=== PATIENT | female | born 1990 | race Caucasian/White ===

== ENCOUNTER 2017-09-02 10:51 | Emergency (ER) | payer MEDICAID ==
[2017-09-02 11:14] VITALS: BP 144/93
[2017-09-02] MEDS: Lidocaine 1% 20 ML MDV ONE (11:30)
[2017-09-02] MEDS: Bacitracin/Neomycin/Polymyxin B Oint 0.9 GM U/D Packet ONE (11:30)
--- NOTE | 2017-09-02 12:59 | EDM.PDOC ---
ED HPI GENERAL MEDICAL PROBLEM - General Chief Complaint: Laceration Stated Complaint: LT RING FINGER Time Seen by Provider: 09/02/17 11:00 Source of Information: Reports: Patient History Limitations: Reports: No Limitations - History of Present Illness INITIAL COMMENTS - FREE TEXT/NARRATIVE: Patient presents with a laceration to her left ring finger. She states she caught her ring on the gate at home and sliced her finger open. Did apply pressure with a bandage. Has good range of motion with her finger. Mild discomfort. Unsure of tetanus status. 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: , Other (See Below) Other OB/BYN History: 2 VIABLE CHILDREN, CURRENTLY 23WEEKS Social & Family History - Tobacco Use Smoking Status *Q: Unknown Ever Smoked - Recreational Drug Use Recreational Drug Use: No ED ROS GENERAL - Review of Systems Review Of Systems: See Below Constitutional: Reports: No Symptoms HEENT: Reports: No Symptoms Respiratory: Reports: No Symptoms Cardiovascular: Reports: No Symptoms GI/Abdominal: Reports: No Symptoms Skin: Reports: Wound ED EXAM, SKIN/RASH Exam: See Below Exam Limited By: No Limitations General Appearance: Alert, WD/WN, No Apparent Distress Extremities: Normal Range of Motion, Normal Capillary Refill Neurological: Alert, Oriented Psychiatric: Normal Affect, Normal Mood Skin: Wound/Incision ED SKIN PROCEDURES - Laceration/Wound Repair Left Finger Lac/Wound length In cm: 1.5 Appearance: Superficial Distal NVT: Neuro & Vascular Intact Anesthetic Type: Local Local Anesthesia - Lidocaine (Xylocaine): 1% Plain Local Anesthetic Volume: 2cc Skin Prep: Other (saf-clens) Exploration/Debridement/Repair: Wound Explored Closed with: Sutures Suture Size: 4-0 Suture Type: Nylon, Interrupted, Simple # of Sutures: 3 Sterile Dressing Applied: Nurse Tetanus Status Addressed: Yes Complications: No Course - Vital Signs Last Recorded V/S: Last Vital Signs Temp 98.5 F 09/02/17 11:12 Pulse 106 H 09/02/17 11:12 Resp 20 09/02/17 11:12 BP 144/93 H 09/02/17 11:12 Pulse Ox 99 09/02/17 11:12 - Orders/Labs/Meds Meds: Medications Discontinued Medications Generic Name Dose Route Start Last Admin Trade Name Jorge PRN Reason Stop Dose Admin Lidocaine HCl Confirm 09/02/17 10:53 09/02/17 11:30 Xylocaine 1% Administered 09/02/17 10:54 20 ml Dose Administration 20 ml .ROUTE .STK-MED ONE Neomycin/Polymyxin/Bacitracin Confirm 09/02/17 11:06 09/02/17 11:30 Triple Antibiotic Oint Administered 09/02/17 11:07 1 each Dose Administration 1 each .ROUTE .STK-MED ONE Departure - Departure Time of Disposition: 12:57 Disposition: Home, Self-Care 01 Condition: Good Clinical Impression: Broken skin, Laceration of index finger of left hand without complication - Discharge Information Referrals: Ed Sierra MD [Primary Care Provider] - Forms: ED Department Discharge Additional Instructions: 1. Keep wound clean and dry 2. Triple antibiotic ointment for 3 days, then switch to vaseline 3. Keep wound covered when exposed to the elements 4. Wound care instructions 5. Sutures out in 10 days 6. Contact us with any questions or concerns
== END 2017-09-02 11:20 | disposition home or self-care (01) ==
LOC: CC.ED 10:51
DX: S61.211A Laceration without foreign body of left index finger without damage to nail, initial encounter (principal); W23.1XXA Caught, crushed, jammed, or pinched between stationary objects, initial encounter; Y92.009 Unspecified place in unspecified non-institutional (private) residence as the place of occurrence of the external cause
CPT/HCPCS: 12001; 99283

== ENCOUNTER → 2018-04-11 | Day surgery (SDC) | payer MEDICAID ==
[~2018-04-11] MED LIST: Lactated Ringers 1,000 ML IV SCH; Propofol 200 MG/20 ML SDV IV ONE
[2018-04-11 13:41] VITALS: BP 105/67
--- NOTE | 2018-04-11 15:02 | OR ---
DATE OF OPERATION: 04/11/2018 PREOPERATIVE DIAGNOSIS: EPIGASTRIC PAIN. POSTOPERATIVE DIAGNOSIS: EPIGASTRIC PAIN. SURGEON: Ed Sierra MD PROCEDURE: FULL-LENGTH EGD WITH BIOPSIES X2, RENEE WITH POLYP REMOVAL X1. ANESTHESIA: SHORT PIECE HANDLER. COMPLICATIONS: None. SPECIMEN: 1. Antral biopsy x2. 2. Antral RENEE. 3. Fundal polyp. FINDINGS: 1. Full-length EGD. 2. Active gastritis, fundus and antrum. 3. Fundal polyp, adenomatous and benign in nature. RECOMMENDATIONS: We will initiate proton pump therapy and Carafate and patient will follow up with Brigitte for pathology and RENEE results. INDICATIONS: The patient has been having some ongoing issues with epigastric pain requiring chronic use of antacids. Brigitte sent her for EGD. DESCRIPTION OF PROCEDURE: The patient was prepped and draped, placed in the left lateral decubitus position. A lubricated Olympus gastroscope was inserted over a bit and advanced to cricopharyngeus area and easily intubated into the esophagus. The esophageal lining was benign in its entire course. The Z-line was crisp and sharp at 39 cm. No inguinal hernia. No signs of spontaneous reflux, distal esophagitis, stricturing, ulceration, or Blackmon's changes. The scope was advanced into the stomach through the pylorus and into the second portion of the duodenum. This and the duodenal bulb were fine. The scope was brought back into the stomach and retroflexed. The upper fundus and cardia were for the most part unremarkable, although the patient did have 1 adenomatous polyp which was removed in its entirety with 2 forceps biopsies. Upon straightening, the rest of the fundus and its most distal portion did show some gastritis and the patient does have active gastritis of most of the antrum extending to the pyloric region. Two biopsies were taken along with a CLOtest. No other lesions were seen. Air was then suctioned from the stomach and scope removed without complication. LIANNA/TORIE /[id number]
== END ==
LOC: CC.SDS 12:05
PROVIDERS: ATTEND Family Medicine
DX: K31.7 Polyp of stomach and duodenum (principal); K29.50 Unspecified chronic gastritis without bleeding; J30.9 Allergic rhinitis, unspecified; G43.909 Migraine, unspecified, not intractable, without status migrainosus; Z79.899 Other long term (current) drug therapy
CPT/HCPCS: 36415; 43239; 84703; 87081; J2704